=== PATIENT | male | born 1970 | race Caucasian/White ===

== ENCOUNTER 2019-12-27 15:51 | Outpatient (CLI) | payer BC, SELFPAY ==
--- NOTE | ~2019-12-27 | XR_ITS ---
EXAMINATION: XR chest 2V 12/27/2019 16:08 INDICATION: Productive cough PROCEDURE: 2 view chest COMPARISON: No prior studies for comparison. FINDINGS: The lungs are clear. The cardiomediastinal silhouette is within normal limits. There are no pleural effusions. There is no pneumothorax suspected. IMPRESSION: 1: NO ACUTE CARDIOPULMONARY DISEASE. Reviewed, dictated and finalized at location A.
== END 2019-12-27 15:52 | disposition home or self-care (01) ==
PROVIDERS: PCP Internal Medicine; Visit Provider Internal Medicine
DX: R05 Cough (principal)
CPT/HCPCS: 71046

== ENCOUNTER 2022-02-21 16:16 | Emergency (ER) | payer BC, SELFPAY ==
--- NOTE | ~2022-02-21 | XR_ITS ---
EXAM: XR tibia fibula LT 2V DATE: 02/21/2022 16:56 HISTORY: Laceration lat mid Lt Lower leg, cut with chain saw this P.M . COMPARISON: None available. FINDINGS: Normal mineralization. No fracture or dislocation. No lytic or blastic lesion. Mild degene rative changes in the knee and ankle. No erosion or periosteal change. Bandage material over the late ral calf. IMPRESSION: No acute osseous finding in the left tibia or fibula. Reviewed, dictated and finalized at location K.
[2022-02-21 16:18] VITALS: BP 111/81; PULSE 95; RESP 20; TEMP 36.2; O2SAT 98
--- NOTE | 2022-02-21 17:05 | ED.WOUNDLAC ---
HPI - Wound/Laceration General Chief Complaint: Wound/Laceration Stated Complaint: chainsaw to left calf Time Seen by Provider: 02/21/22 16:50 History of Present Illness HPI narrative: 51-year-old male presents the emergency room for evaluation of multiple lacerations to his left lower extremity after accidentally cutting himself with a chainsaw. Patient states that he suffered 3 lacerations to the side of his left calf. Denies any difficulty walking or any lower extremity weakness or loss of strength. Related Data Home Medications Medication Instructions Recorded Confirmed duloxetine 20 mg capsule,delayed 20 mg PO DAILY 12/27/19 08/23/20 release (Cymbalta) oxycodone 30 mg tablet,crush 30 mg PO Q12H 12/27/19 08/23/20 resistant,extended release 12 hr (OxyContin) oxycodone-acetaminophen 10 mg-325 1 tablet PO Q4H PRN 12/27/19 08/23/20 mg tablet (Percocet) Allergies Allergy/AdvReac Type Severity Reaction Status Date / Time No Known Allergies Allergy Verified 02/21/22 16:28 Review of Systems Review of Systems: CONSTITUTIONAL: Denies fever, chills, or sweats. EYES: Denies visual changes, redness, or discharge. ENT: Denies rhinorrhea, congestion, sore throat, or otalgia. CARDIOVASCULAR: Denies chest pain, palpitations, or edema. RESPIRATORY: Denies cough or dyspnea. GASTROINTESTINAL: Denies abdominal pain, nausea, vomiting, or diarrhea. GENITOURINARY: Denies dysuria or hematuria. SKIN: Multiple lacerations to left lower extremity MUSCULOSKELETAL: Denies back pain, joint pain, or myalgia. NEUROLOGIC: Denies headache, numbness, dizziness, or weakness. PSYCHIATRIC: Denies anxiety or depression. [facility] Surgical History Surgical History History of back surgery Family History Family History Mother Patient's mother is in good health Sibling Patient's brother is in good health Father Patient's father is Other Throat cancer Social History Social History Smoking packs per day: 1 Smoking cigarettes per day: 20.0 Years smoked: 30 Smoking pack-years: 30.00 Smoking status: Current every day smoker Second hand tobacco smoke exposure: Yes Alcohol intake: current Substance use: never Additional occupation/education comments: [employer] Gender identity (if verbalized by the patient): Male Exam Narrative: GENERAL: Well-appearing, well-nourished, no physical limitations, and in no acute distress. HEAD: Normocephalic, atraumatic. EYES: Conjunctivae normal, PERRLA and EOMI. CHEST: Clear to auscultation. No respiratory distress. No wheezes rales or rhonchi. No tenderness. HEART: Regular rate and rhythm. No murmur heard. Normal peripheral pulses. EXTREMITIES: Normal range of motion. No edema. No clubbing or cyanosis SKIN: LLE: 3 linear lacerations to the lateral side of the calf NEURO: No focal deficits. Alert and oriented x3. MAEW. CN's II-XI intact bilaterally, normal gait PSYCH: Cooperative. Normal mood and affect. Course Vital Signs Vital signs: Vital Signs Temperature 36.2 C L 02/21/22 16:18 Pulse Rate 95 02/21/22 16:18 Respiratory Rate 20 02/21/22 16:18 Blood Pressure 111/81 02/21/22 16:18 Pulse Oximetry 98 02/21/22 16:18 Oxygen Delivery Room Air 02/21/22 16:18 Temperature 36.2 C L 02/21/22 16:18 Pulse Rate 95 02/21/22 16:18 Respiratory Rate 20 02/21/22 16:18 Blood Pressure 111/81 02/21/22 16:18 Pulse Oximetry 98 02/21/22 16:18 Oxygen Delivery Room Air 02/21/22 16:18 Procedures Laceration Laceration 1: Date: 02/21/22 Time: 18:21 Site: lower extremity Side (If applicable): left Size (cm): 3 Description: linear Depth: simple, single layer Local Anesthetic: lidocaine 1% and with epi Amount of
[2022-02-21] MEDS: TETANUS,DIPHTHERIA,AC PERTUSSIS ADULT (0.5 ML) BOOSTRIX IM (17:20)
== END 2022-02-21 18:40 | disposition home or self-care (01) ==
PROVIDERS: Emergency Provider Nurse Practitioner Family; PCP Internal Medicine
DX: S81.812A Laceration without foreign body, left lower leg, initial encounter (principal); Z23 Encounter for immunization; F17.210 Nicotine dependence, cigarettes, uncomplicated; W29.3XXA Contact with powered garden and outdoor hand tools and machinery, initial encounter
CPT/HCPCS: 12005; 73590; 90471; 90715; 96365; 99284; J0696

== ENCOUNTER 2022-09-08 18:17 | Outpatient (CLI) | payer BC, SELFPAY ==
--- NOTE | ~2022-09-08 | CT_ITS ---
EXAMINATION: CT lung screening DATE: 09/08/2022 18:36 INDICATION: Personal history of tobacco dependence. TECHNIQUE: Computed tomography (CT) of the chest was performed without intravenous contrast. The dose -length product was 111.21 mGy-cm. Automated exposure control and iterative reconstruction technique were employed. COMPARISON: CT dated 10/06/2018 FINDINGS: Heart size normal. No thoracic lymphadenopathy. No significant pleural or pericardial effus ion. The upper abdomen is unremarkable. No focal airspace consolidation. No endobronchial lesions. 2 mm right upper lobe nodule. No pneumothorax. No peripheral airspace consolidation. Anterior cervical spinal fusion partially visualized. Mild thoracic spondylosis. No focal lytic or blastic lesions. IMPRESSION: 1. Lung-RADS category 2: Benign appearance or behavior. Continue annual screening with noncontrast lo w-dose chest CT in 12 months. Reviewed, dictated and finalized at location B. [employer] IMPRESSION: 1. Lung-RADS category 2: Benign appearance or behavior. Continue annual screeni ng with noncontrast low-dose chest CT in 12 months.
== END 2022-09-08 18:18 | disposition home or self-care (01) ==
PROVIDERS: PCP Internal Medicine; Visit Provider Internal Medicine
DX: Z12.2 Encounter for screening for malignant neoplasm of respiratory organs (principal); F17.210 Nicotine dependence, cigarettes, uncomplicated
CPT/HCPCS: 71271

== ENCOUNTER 2023-12-14 13:44 | Outpatient (CLI) | payer BC, SELFPAY ==
--- NOTE | ~2023-12-14 | XR_ITS ---
XR hip RT min 2V 12/14/2023 14:45 Indication: Right hip pain Procedure: 2 views right hip Comparison: No prior studies for comparison. Findings: Moderate osteoarthritis of the right hip. No fracture or traumatic malalignment. No soft ti ssue abnormality. No foreign bodies. Impression: 1: Moderate osteoarthritis of the right hip. Reviewed, dictated and finalized at location B. Impression: 1: Moderate osteoarthritis of the right hip.
--- NOTE | ~2023-12-14 | XR_ITS ---
Right Knee Technique: AP, lateral, and sunrise views were obtained. Clinical History: Pain Findings: No fracture or dislocation is seen. Osseous alignment is anatomic. Joint spaces are preserv ed without degenerative or erosive change. Suspected small joint effusion is seen. Impression: Suspect a small joint effusion. Reviewed, dictated and finalized at [facility]. Impression: Suspect a small joint effusion.
[2023-12-14 16:07] LABS: Alanine Aminotransferase 15 U/L (6-50); Albumin Level 4.1 g/dL (3.5-5.1); Alkaline Phosphatase 61 U/L (38-126); Anion Gap 2 mmol/L (4-12); Aspartate Amino Transferase 22 U/L (17-59); Bilirubin,Total 0.3 mg/dL (0.2-1.3); Blood Urea Nitrogen 22 mg/dL (9-20); Calcium 8.8 mg/dL (8.4-10.2); Carbon Dioxide 29 mmol/L (22-30); Chloride 107 mmol/L (98-107); Estimated Glomerular Filt Rate > 60; Glucose 102 mg/dL (65-110); Magnesium 1.9 mg/dL (1.6-2.3); Potassium 4.4 mmol/L (3.4-5.0); Sodium 138 mmol/L (137-145)
== END 2023-12-14 13:45 | disposition home or self-care (01) ==
PROVIDERS: PCP Internal Medicine; Visit Provider Internal Medicine
DX: M62.838 Other muscle spasm (principal); I10 Essential (primary) hypertension; M25.552 Pain in left hip; M25.561 Pain in right knee; M25.551 Pain in right hip; M16.11 Unilateral primary osteoarthritis, right hip
CPT/HCPCS: 36415; 73502; 73562; 80053; 83735